=== PATIENT | male | born 1965 | race Caucasian/White ===

== ENCOUNTER → 2021-09-25 | Outpatient (CLI) | payer BC | LOC: KOH-I 10:30 | DX: M25.561 Pain in right knee (principal); G89.29 Other chronic pain; S83.231A Complex tear of medial meniscus, current injury, right knee, initial encounter | CPT/HCPCS: 73721 ==

== ENCOUNTER → 2021-11-05 | Day surgery (SDC) | payer BC ==
[~2021-11-05] MED LIST: AMLODIPINE BESYL5 MG PO; CRESTOR10 MG PO; LISINOPRIL10 MG PO; PROTONIX 40 MG40 M1 PO
== END | disposition home or self-care (01) ==
LOC: OR 05:54
DX: Z12.11 Encounter for screening for malignant neoplasm of colon (principal); D12.2 Benign neoplasm of ascending colon; N40.0 Benign prostatic hyperplasia without lower urinary tract symptoms; K57.30 Diverticulosis of large intestine without perforation or abscess without bleeding; I10 Essential (primary) hypertension; K21.9 Gastro-esophageal reflux disease without esophagitis; E78.00 Pure hypercholesterolemia, unspecified; Z80.0 Family history of malignant neoplasm of digestive organs; Z87.891 Personal history of nicotine dependence
CPT/HCPCS: J2001; J2704; J7120

== ENCOUNTER → 2021-12-25 | Day surgery (SDC) | payer BC ==
[~2021-12-25] VITALS: Ht 185.4 cm; Wt 134.7 kg
[~2021-12-25] MED LIST changes: +HYDROCODON-ACE1 EAC6 PO
== END | disposition home or self-care (01) ==
LOC: OR 05:22
DX: S83.231A Complex tear of medial meniscus, current injury, right knee, initial encounter (principal); M94.261 Chondromalacia, right knee; M17.12 Unilateral primary osteoarthritis, left knee; I10 Essential (primary) hypertension; E78.5 Hyperlipidemia, unspecified; K21.9 Gastro-esophageal reflux disease without esophagitis; E66.01 Morbid (severe) obesity due to excess calories; F17.220 Nicotine dependence, chewing tobacco, uncomplicated; Z79.899 Other long term (current) drug therapy
CPT/HCPCS: J0171; J0690; J1100; J1885; J2001; J2250; J2405; J2704; J3010